=== PATIENT | male | born 1975 | race Caucasian/White ===

== ENCOUNTER 2016-11-28 10:25 | Emergency (ER) | payer OTHER ==
[2016-11-28 10:33] VITALS: BP 134/78; PULSE 82; RESP 18; TEMP 99.1
[2016-11-28] MEDS ORDERED: PROPARACAINE 0.5% OPHTH DROPS 15 ML BTL LEFT EYE STA (10:37)
[2016-11-28] MEDS ORDERED: TOBRAMYCIN 0.3% OPHTH DROPS 5 ML BTL LEFT EYE STA (10:37)
--- NOTE | 2016-11-28 10:40 | ED ---
Eye Problem HPI - General Chief complaint: Eye Problems Stated complaint: [facility] FB left eye Time Seen by Provider: 11/28/16 10:34 Source: patient, RN notes reviewed Mode of arrival: ambulatory Limitations: no limitations - History of Present Illness Initial comments: 41-year-old male present emergency Department chief complaint left eye foreign body. Patient states she was at work walking around states that something flew into his eye. Patient did have safety glasses on. Patient states she's unsure when his last stent was. Patient denies any blurred vision but states it is irritating. Patient states she does have some tearing. - Related Data Previous Rx's Medication Instructions Recorded Tobramycin [Tobrex 0.3% Ophth Soln] 1 drop LEFT EYE Q4HR #5 ml 11/28/16 Allergies Allergy/AdvReac Type Severity Reaction Status Date / Time No Known Allergies Allergy Verified 11/28/16 10:33 Review of Systems ROS Statement: Those systems with pertinent positive or pertinent negative responses have been documented in the HPI. ROS Other: All systems not noted in ROS Statement are negative. Past Medical History Past Medical History: No Reported History History of Any Multi-Drug Resistant Organisms: None Reported Past Surgical History: No Surgical Hx Reported Past Psychological History: No Psychological Hx Reported Smoking Status: Light tobacco smoker Past Alcohol Use History: Occasional Past Drug Use History: None Reported General Exam Limitations: no limitations General appearance: alert, in no apparent distress Head exam: Present: atraumatic, normocephalic, normal inspection Eye exam: Present: PERRL, EOMI, other (2 drops of proparacaine relieved all symptoms with the patient. Wood's lamp and fluorescein dye were used to evaluate the eye. There is uptake in the 12 o'clock position at foreign body no other areas.). Absent: normal appearance (Foreign body noted 12 o'clock position), scleral icterus, conjunctival injection, periorbital swelling Respiratory exam: Present: normal lung sounds bilaterally. Absent: respiratory distress, wheezes, rales, rhonchi, stridor Cardiovascular Exam: Present: regular rate, normal rhythm, normal heart sounds. Absent: systolic murmur, diastolic murmur, rubs, gallop, clicks Course Vital Signs 11/28/16 10:30 Temperature 99.1 F Pulse Rate 82 Respiratory 18 Rate Blood Pressure 134/78 O2 Sat by Pulse 100 Oximetry Procedures - Procedures Initial comment: Left eye foreign body removal. Patient had 2 drops of proparacaine to anesthetize the eye. Sterile Q-tip was used to remove the foreign body patient tolerated well Medical Decision Making - Medical Decision Making 41-year-old male present emergency department for left eye foreign body. This was removed. Patient was sent home with Tobrex eyedrops. Return parameters were discussed. Patient refuses tetanus. Disposition Clinical Impression: Corneal foreign body Disposition: HOME SELF-CARE Condition: Stable Instructions: Eye Foreign Body (ED) Additional Instructions: Please return to the Emergency Department if symptoms worsen or any other concerns. Prescriptions: Tobramycin [Tobrex 0.3% Ophth Soln] 1 drop LEFT EYE Q4HR #5 ml Referrals: Ivan Combs MD [Primary Care Provider] - 1-2 days Catarino Griffin MD [STAFF PHYSICIAN] - 1-2 days
== END 2016-11-28 11:11 | disposition home or self-care (01) ==
LOC: EC 10:25
DX: T15.02XA Foreign body in cornea, left eye, initial encounter (principal); F17.200 Nicotine dependence, unspecified, uncomplicated
CPT/HCPCS: 65220; 99283

== ENCOUNTER 2021-05-31 08:36 | Emergency (ER) | payer OTHER ==
[2021-05-31 08:42] VITALS: BP 146/97; PULSE 70; RESP 18; TEMP 98
[2021-05-31] MEDS ORDERED: FLUORESCEIN STRIPS 1 MG STRIP LEFT EYE ONE (08:50)
[2021-05-31] MEDS ORDERED: PROPARACAINE 0.5% OPHTH DROPS 15 ML BTL LEFT EYE STA (08:50)
--- NOTE | 2021-05-31 09:48 | ED ---
Eye Problem HPI - General Chief complaint: Eye Problems Stated complaint: [facility]-Eye Injury Time Seen by Provider: 05/31/21 08:40 Source: patient Mode of arrival: ambulatory Limitations: no limitations - History of Present Illness Initial comments: 45-year-old male presents emergency room with a sensation that something is in his left eye. States that the incident happened approximately 1.5 hours prior to arrival. States he was at work when something flew into his eye. He has some increased tearing. States that he can see the foreign body in his vision. He normally wears glasses. Denies blurred vision, flashes or floaters of light. No eye crusting. Incident happened at work and therefore he was transferred to our facility via cab for evaluation. - Related Data Previous Rx's Medication Instructions Recorded Tobramycin [Tobrex 0.3% Ophth Soln] 1 drop LEFT EYE Q4HR #5 ml 11/28/16 Allergies Allergy/AdvReac Type Severity Reaction Status Date / Time No Known Allergies Allergy Verified 05/31/21 08:38 Review of Systems ROS Statement: Those systems with pertinent positive or pertinent negative responses have been documented in the HPI. ROS Other: All systems not noted in ROS Statement are negative. Past Medical History Past Medical History: No Reported History History of Any Multi-Drug Resistant Organisms: None Reported Past Surgical History: No Surgical Hx Reported Past Psychological History: No Psychological Hx Reported Smoking Status: Never smoker Past Alcohol Use History: None Reported Past Drug Use History: None Reported General Exam Limitations: no limitations General appearance: alert, in no apparent distress Head exam: Present: atraumatic, normocephalic, normal inspection Eye exam: Present: PERRL, EOMI, other (<1 mm rust ring over 12:00 position of left eye). Absent: conjunctival injection, nystagmus, periorbital swelling, periorbital tenderness Pupils: Present: normal accommodation Course Vital Signs 05/31/21 08:38 Temperature 98.0 F Pulse Rate 70 Respiratory 18 Rate Blood Pressure 146/97 O2 Sat by Pulse 98 Oximetry Medical Decision Making - Medical Decision Making Upon arrival patient was placed into room 19. The rest of physical exam was performed. Slit lamp exam is performed at the patient's eye is stained with fluroscein. The patient does have a notable rust ring noted at the 12 o'clock position. I did use the [place] brush to attempt removal however rust ring deep in the cornea. It is associated call and speak with Dr. Griffin. He would like to see the patient in his [place] office right now. Patient will be sent over immediately for evaluation. Disposition Clinical Impression: Corneal rust ring of left eye Disposition: HOME SELF-CARE Condition: Stable Instructions (If sedation given, give patient instructions): Eye Foreign Body (ED) Additional Instructions: You must leave here and go to Dr. Kaufman office in [place] for complete removal. He is expecting you before 11 am today. [facility] [address] [place] [address] Is patient prescribed a controlled substance at d/c from ED?: No Referrals: Ivan Combs MD [Primary Care Provider] - 1-2 days Catarino Griffin MD [STAFF PHYSICIAN] - 1-2 days Time of Disposition: 09:46
== END 2021-05-31 09:55 | disposition home or self-care (01) ==
LOC: EC 08:36
DX: T15.02XA Foreign body in cornea, left eye, initial encounter (principal); W22.8XXA Striking against or struck by other objects, initial encounter
CPT/HCPCS: 99283

== ENCOUNTER → 2023-07-10 | Outpatient (CLI) | payer OTHER ==
[2023-07-11 02:30] LABS: ALT 48 U/L (10-49); AST 35 U/L (14-35); Albumin 4.5 g/dL (3.8-4.9); Alkaline Phosphatase 75 U/L (41-126); Calcium 9.9 mg/dL (8.7-10.3); Carbon Dioxide 26.9 mmol/L (21.6-31.8); Chloride 101 mmol/L (96-109); Chol/HDL Ratio 4.34 Ratio; Globulin 2.5 g/dL (1.6-3.3); Glucose 96 mg/dL (70-110); LDL Cholesterol,Calculated 131.8 mg/dL (0.0-131.0); Potassium 4.7 mmol/L (3.5-5.5); Sodium 140 mmol/L (135-145); T4, Free (Free Thyroxine) 1.26 ng/dL (0.80-1.80); Total Bilirubin 0.8 mg/dL (0.3-1.2)
[2023-07-11 02:47] LABS: Basophils # (A) 0.08 X 10*3/uL (0.00-0.10); Basophils % (A) 0.9 %; Eosinophils # (A) 0.08 X 10*3/uL (0.04-0.35); Eosinophils % (A) 0.9 %; HCT 47.6 % (39.6-50.0); HGB 15.7 g/dL (13.0-17.0); Lymphocytes % (A) 26.8 %; MCH 29.5 pg (27.0-32.0); MCV 89.3 FL (80.0-97.0); Mean Platelet Volume 11.1 FL (9.5-12.2); Monocytes # (A) 0.81 X 10*3/uL (0.20-1.00); NRBC Per 100 WBC 0 X 10*3/uL (0.00-0.01); Neutrophils # (A) 5.57 X 10*3/uL (1.80-7.70); Neutrophils % (A) 62.2 %; Platelet Count 261 X 10*3/uL (140-440); RBC 5.33 X 10*6/uL (4.40-5.60); RDW 13.3 % (11.5-14.5); WBC 8.96 X 10*3/uL (4.50-10.00)
[2023-07-11 02:52] LABS: PSA Annual Screen 0.285 ng/mL (0.000-4.000)
== END | disposition home or self-care (01) ==
LOC: LABWHC1 15:24
PROVIDERS: ATTEND Family Medicine
DX: Z12.5 Encounter for screening for malignant neoplasm of prostate (principal); R03.0 Elevated blood-pressure reading, without diagnosis of hypertension; Z83.2 Family history of diseases of the blood and blood-forming organs and certain disorders involving the immune mechanism
CPT/HCPCS: 84439; 80061; 80053; 84443; 85025; 82306; 36415; G0103

== ENCOUNTER → 2023-09-12 | Outpatient (CLI) | payer OTHER ==
[2023-09-12 16:58] LABS: ALT 49 U/L (10-49); AST 36 U/L (14-35); Albumin 4.6 g/dL (3.8-4.9); Albumin/Globulin Ratio 1.77 Ratio (1.60-3.17); Alkaline Phosphatase 74 U/L (41-126); Blood Urea Nitrogen 9.9 mg/dL (9.0-27.0); Calcium 9.8 mg/dL (8.7-10.3); Carbon Dioxide 27.3 mmol/L (21.6-31.8); Chloride 102 mmol/L (96-109); Globulin 2.6 g/dL (1.6-3.3); Glucose 98 mg/dL (70-110); Potassium 4.2 mmol/L (3.5-5.5); Sodium 142 mmol/L (135-145); Total Bilirubin 0.6 mg/dL (0.3-1.2); Total Protein 7.2 g/dL (6.2-8.2)
== END | disposition home or self-care (01) ==
LOC: LABWHC1 08:18
PROVIDERS: ATTEND Family Medicine
DX: I10 Essential (primary) hypertension (principal)
CPT/HCPCS: 36415; 80053

== ENCOUNTER → 2024-07-08 | Outpatient (CLI) | payer OTHER ==
[2024-07-08 19:08] LABS: Basophils # (A) 0.09 X 10*3/uL (0.00-0.10); Eosinophils # (A) 0.04 X 10*3/uL (0.04-0.35); Eosinophils % (A) 0.4 %; HCT 43.3 % (39.6-50.0); HGB 15.1 g/dL (13.0-17.0); Lymphocytes # (A) 3.31 X 10*3/uL (0.90-5.00); Lymphocytes % (A) 35.7 %; MCH 30.2 pg (27.0-32.0); MCHC 34.9 g/dL (32.0-37.0); MCV 86.6 FL (80.0-97.0); Mean Platelet Volume 10.7 FL (9.5-12.2); Monocytes # (A) 0.75 X 10*3/uL (0.20-1.00); Monocytes % (A) 8.1 %; NRBC Per 100 WBC 0 X 10*3/uL (0.00-0.01); Neutrophils # (A) 5.03 X 10*3/uL (1.80-7.70); Neutrophils % (A) 54.4 %; Platelet Count 239 X 10*3/uL (140-440); RDW 12.2 % (11.5-14.5); WBC 9.26 X 10*3/uL (4.50-10.00)
[2024-07-08 21:02] LABS: ALT 42 U/L (10-49); AST 32 U/L (14-35); Albumin 4.9 g/dL (3.8-4.9); Albumin/Globulin Ratio 1.88 Ratio (1.60-3.17); Alkaline Phosphatase 61 U/L (41-126); BUN/Creat Ratio 9.45 Ratio (12.00-20.00); Blood Urea Nitrogen 10.4 mg/dL (9.0-27.0); Calcium 9.5 mg/dL (8.7-10.3); Carbon Dioxide 23.6 mmol/L (21.6-31.8); Chloride 102 mmol/L (96-109); Globulin 2.6 g/dL (1.6-3.3); Glucose 90 mg/dL (70-110); Potassium 3.7 mmol/L (3.5-5.5); Sodium 140 mmol/L (135-145); Total Bilirubin 1.2 mg/dL (0.3-1.2); Total Protein 7.5 g/dL (6.2-8.2)
== END | disposition home or self-care (01) ==
LOC: LABWHC1 16:05
PROVIDERS: ATTEND Family Medicine
DX: Z13.1 Encounter for screening for diabetes mellitus (principal); I10 Essential (primary) hypertension; E55.9 Vitamin D deficiency, unspecified; Z83.2 Family history of diseases of the blood and blood-forming organs and certain disorders involving the immune mechanism
CPT/HCPCS: 36415; 80053; 81241; 82306; 83036; 85025